=== PATIENT | male | born 1970 | race Caucasian/White ===

== ENCOUNTER 2017-12-19 20:00 | Emergency (ER) | payer OTHER ==
[~2017-12-19] VITALS: Ht 182.9 cm; Wt 99.8 kg
[2017-12-19 20:39] VITALS: BP 120/75
--- NOTE | 2017-12-19 20:45 | ED GI/GU/ABDOMINAL COMPLAINT ---
History of Present Illness General Chief Complaint: Male Genitourinary Problems Stated Complaint: "I'M DRIPPING BLOOD FROM MY PENIS" Source: patient Exam Limitations: no limitations Vital Signs & Intake/Output Vital Signs & Intake/Output Vital Signs Date Time Temp Pulse Resp B/P B/P Pulse O2 O2 Flow FiO2 Mean Ox Delivery Rate 12/19 2038 96.4 60 18 120/75 96 Room Air ED Intake and Output 12/20 0000 12/19 1200 Intake Total Output Total Balance Patient 220 lb Weight Weight Estimated Measurement Method Allergies Coded Allergies: NO KNOWN ALLERGIES (10/11/14) Reconcile Medications Sulfamethoxazole/Trimethoprim (Bactrim Ds Tablet) 800 MG-160 MG TABLET 1 TAB PO BID uti Triage Note: RECEIVED 47 YO MALE C/O BLOOD COMING FROM PENIS AFTER HE URINATES, STARTED TODAY. PT REPORTS THE TOILET WAS FILLED WITH BLOOD AFTER HE URIANATED X 2. PT REPORTS BLOOD DRIPPING FROM PENIS AFTER HE URINATES TODAY. PT ALSO REPORTS BURNING WITH URINATION X FEW WEEKS. Triage Nurses Notes Reviewed? yes Onset: Abrupt Duration: day(s): (1), constant Timing: recent history HPI: 47-year-old male comes into the emergency room complaints of burning when he plays as well as some blood dripping from his penis that he noticed earlier today. Denies any fever chills vomiting. Denies any trauma. Denies any testicular pain. He reports that he has chronic back pain issues and it feels the same as normal. Denies any flank pain. Denies any other associated symptoms. (Red Arnold) Past History Travel History Traveled to [place] past 21 day No Medical History Any Pertinent Medical History? see below for history Neurological: NONE EENT: NONE Cardiovascular: NONE Respiratory: NONE Gastrointestinal: NONE Hepatic: NONE Renal: NONE Musculoskeletal: NONE Psychiatric: depression, substance abuse Endocrine: NONE Blood Disorders: NONE Cancer(s): NONE APPELLATE COURT JUDGE/Reproductive: NONE Tetanus Vaccine: Surgical History Surgical History: non-contributory Psychosocial History Who do you live with Patient/Self What is your primary language Japanese Tobacco Use: Current Daily Use Daily Tobacco Use Amount/Type: => 5 Cigarettes daily Family History Hx Contributory? No (Red Arnold) Review of Systems Review of Systems Constitutional: Reports: no symptoms. EENTM: Reports: no symptoms. Respiratory: Reports: no symptoms. Cardiovascular: Reports: no symptoms. GI: Reports: no symptoms. Genitourinary: Reports: see HPI. Musculoskeletal: Reports: no symptoms. Skin: Reports: no symptoms. Neurological/Psychological: Reports: no symptoms. Hematologic/Endocrine: Reports: see HPI. Immunologic/Allergic: Reports: no symptoms. All Other Systems: Reviewed and Negative (Red Arnold) Physical Exam Physical Exam General Appearance: well developed/nourished, alert, awake Head: atraumatic Eyes: Bilateral: normal appearance. Ears, Nose, Throat, Mouth: hearing grossly normal, moist mucous membrane Neck: normal inspection Respiratory: normal breath sounds, no respiratory distress Gastrointestinal: soft, non-tender Male Genitals: normal genitalia, dried blood located at the meatus of penis, Back: normal inspection Extremities: normal range of motion Neurologic/Psych: awake, alert, oriented x 3 Skin: intact, normal color Core Measures ACS in differential dx? No Sepsis Present: No Sepsis Focused Exam Completed? No (Red Arnold) Progress Differential Diagnosis: STD, ureterolithiasis, urinary retention, urethritis, UTI/pyelo Plan of Care: Orders Procedure Date/time Status Add-on Test (ER Only) 12/19 2145 Active CULTURE,URINE 12/19 2056 Active CHLAMYDIA-GC DNA PROBE 12/20 2043 Active URINALYSIS 12/19 2034 Complete Laboratory Tests 12/19/172056: Urine Color YEL, Urine Clarity HAZY H, Urine pH 6.0, Ur Specific [place] >= 1.030, Urine Protein NEG, Urine Ketones NEG, Urine Nitrite NEG, Urine Bilirubin NEG, Urine Urobilinogen 0.2, Ur Leukocyte Esterase NEG, Ur Microscopic SEDIMENT EXAMINED, Urine RBC >75 H, Urine WBC 5-10 H, Ur Epithelial Cells RARE, Urine Bacteria RARE H, Urine Mucus RARE, Urine Hemoglobin LARGE H, Urine Glucose NEG Microbiology 12/19 2056 URINE ROUT: Urine Culture - RECD 12/19 2056 URINE ROUT: GC DNA Probe - RECD 12/19 2056 URINE ROUT: Chlamydia DNA Probe (PATRIC) - RECD Initial ED EKG: none (Red Arnold) Departure Departure Disposition: HOME OR SELF CARE Condition: Stable Clinical Impression Primary Impression: Hematuria Referrals: Patient Has No Primary Care Dr (PCP/Family) Additional Instructions: Take Bactrim as prescribed. Follow-up with primary care doctor. Return if any concerns worsening symptoms. Follow-up with urologist provided. Please go over all results of today's visit with your primary care doctor. Contact your primary care doctor to let them know you were here in the emergency room. There may be nonspecific findings which may not be related to your visit today here in the emergency room but may require further evaluation and chronic monitoring by your primary care doctor. If you had a laceration today the chance of foreign body always remains. You should follow-up with your primary care doctor for recheck in 3-5 days for a wound check. If you had an x-ray done there is a chance that a fracture could have been missed on initial read and you should follow-up with your primary care doctor for repeat x-rays if symptoms persist. If your blood pressure was elevated here in the emergency room please have rechecked by brittney primary care doctor within the next 48. If you were prescribed a narcotic here in the emergency room or any type of controlled substances you're not allowed to drive while taking this medication or operate any type of heavy machinery. Narcotics can make you feel lightheaded dizziness nausea and can cause constipation. You may need to curing pickling packer a stool softener. Thank you for choosing [facility] emergency room. Please return to the emergency room immediately if you have any other concerns worsening of symptoms. Departure Forms: Customer Survey General Discharge Information Prescriptions: Current Visit Scripts Sulfamethoxazole/Trimethoprim (Bactrim Ds Tablet) 1 TAB PO BID #14 TAB Comments 12/19/2017 9:50:15 PM Follow-up with urologist. Return if any other concerns worsening symptoms. Patient understands and agrees with plan of care. Clinically looks well. He does not appear to be any type of distress. (Red Arnold) PA/RECREATIONAL AIDE Co-Sign Statement Statement: ED Attending supervision documentation- [] I saw and evaluated the patient. I have also reviewed all the pertinent lab results and diagnostic results. I agree with the findings and the plan of care as documented in the PA's/RECREATIONAL AIDE's documentation. [x] I have reviewed the ED Record and agree with the PA's/RECREATIONAL AIDE's documentation. [] Additions or exceptions (if any) to the PAs/RECREATIONAL AIDE's note and plan are summarized below: [] (Lucrecia LINO,Mason Garcia)
[2017-12-19] MEDS ORDERED: BACTRIM DS TAB1 EACH PO (21:48)
== END 2017-12-19 22:16 ==
LOC: ERH 20:00
DX: R31.9 Hematuria, unspecified (principal)
CPT/HCPCS: 81001; 87086; 87491; 87591